=== PATIENT | female | born 2005 | race Two or more races ===

== ENCOUNTER 2025-04-15 17:17 | Observation (INO) | payer MEDICAID, SELFPAY ==
[2025-04-15 17:38] VITALS: BP 118/73; PULSE 94; RESP 18; RESP 98; TEMP 36.9
[2025-04-15 17:39] LABS: Collection Type, Urine Clean Catch
[2025-04-15] MEDS: RINGERS LACTATED 1000 ML 1,000 ML 999 ML IV (17:42)
[2025-04-15 17:45] VITALS: BMI 29.9
[2025-04-15 17:46] LABS: Bacteria,Urine Rare; Bilirubin,Urine Negative (Negative); Blood,Urine Negative (Negative); Clarity,Urine Turbid (Clear/Hazy); Color,Urine Lt-Yellow (Lt Yel-Yel); Glucose, Urine Trace (Negative); Ketones,Urine Negative (Negative); Leukocyte Esterase,Urine Negative (Negative); Nitrite,Urine Negative (Negative); PH,Urine 6.5 (5.0-7.0); Protein,Urine Negative (Neg - Trace); RBC,Urine 1 /hpf (0-3); Specific Gravity,Urine 1.007 (1.001-1.035); Squamous Epithelial Cell,Urine 13 /hpf (0-5); Urobilinogen,Urine Negative mg/dL (0.0-1.0); WBC,Urine 2 /hpf (0-5)
[2025-04-15 19:46] VITALS: BP 110/61; PULSE 70
[2025-04-15 19:48] VITALS: BP 110/61; PULSE 70; RESP 18; TEMP 36.8
== END 2025-04-15 21:20 | disposition home or self-care (01) ==
PROVIDERS: Admitting Provider Student in an Organized Health Care Education/Training Program; Visit Provider Student in an Organized Health Care Education/Training Program
DX: O26.893 Other specified pregnancy related conditions, third trimester (principal); Z3A.35 35 weeks gestation of pregnancy; R10.2 Pelvic and perineal pain
CPT/HCPCS: 59025; 59899; 81001; J7120

== ENCOUNTER 2025-04-16 10:13 | Outpatient (CLI) | payer MEDICAID, SELFPAY ==
[2025-04-16] VITALS (8 sets, daily range): BP systolic 120; BP diastolic 70; PULSE 70–100; RESP 20–99; TEMP 36.8; O2SAT 96–99; BMI 30.4
[2025-04-16] MEDS: BETAMET ACET/BETAMET NA PH (Celestone) 6 MG/ML VIAL 12 MG IM (11:17)
== END 2025-04-16 11:25 | disposition home or self-care (01) ==
LOC: S4S1 10:14 → S4SX 10:15
PROVIDERS: Referring Provider Specialist; Visit Provider Specialist
DX: Z34.03 Encounter for supervision of normal first pregnancy, third trimester (principal); Z3A.35 35 weeks gestation of pregnancy
CPT/HCPCS: 59025; 96372; J0702

== ENCOUNTER 2025-04-17 10:34 | Outpatient (CLI) | payer MEDICAID, SELFPAY ==
[2025-04-17 10:39] VITALS: BMI 29.5
[2025-04-17 10:40] VITALS: BP 115/68; PULSE 112; PULSE 94; RESP 20; TEMP 36.1; O2SAT 97
[2025-04-17 10:45] VITALS: PULSE 79; O2SAT 98
[2025-04-17 10:50] VITALS: PULSE 120; O2SAT 97
[2025-04-17 10:55] VITALS: PULSE 105; O2SAT 99
[2025-04-17 11:00] VITALS: PULSE 89; O2SAT 99
[2025-04-17] MEDS: BETAMET ACET/BETAMET NA PH (Celestone) 6 MG/ML VIAL 12 MG IM (11:02)
[2025-04-17 11:05] VITALS: PULSE 95; O2SAT 99
== END 2025-04-17 11:13 | disposition home or self-care (01) ==
LOC: S4S1 10:35 → S4SX 10:37
PROVIDERS: PCP Registered Nurse; Referring Provider Specialist; Visit Provider Specialist
DX: Z34.03 Encounter for supervision of normal first pregnancy, third trimester (principal); Z3A.35 35 weeks gestation of pregnancy
CPT/HCPCS: 59025; 96372; J0702

== ENCOUNTER 2025-04-18 15:11 | Observation (INO) | payer MEDICAID, SELFPAY ==
[2025-04-18 15:11] VITALS: BP 118/63; PULSE 77; RESP 18; RESP 99; TEMP 36.8
[2025-04-18 15:16] VITALS: BP 118/63; PULSE 77
[2025-04-18 15:35] VITALS: BMI 29.8
[2025-04-18 18:19] VITALS: BP 116/67; PULSE 76; RESP 18
== END 2025-04-18 18:20 | disposition home or self-care (01) ==
PROVIDERS: Admitting Provider Specialist; Visit Provider Specialist
DX: O26.893 Other specified pregnancy related conditions, third trimester (principal); Z3A.36 36 weeks gestation of pregnancy; R10.2 Pelvic and perineal pain
CPT/HCPCS: 59899

== ENCOUNTER 2025-04-25 22:09 | Observation (INO) | payer MEDICAID, SELFPAY ==
[2025-04-25 22:13] VITALS: BP 105/73; PULSE 108; RESP 16; RESP 98; TEMP 36.8
[2025-04-25 22:24] VITALS: PULSE 108; RESP 16; TEMP 36.8; O2SAT 98
== END 2025-04-25 23:46 | disposition home or self-care (01) ==
PROVIDERS: Admitting Provider Obstetrics & Gynecology; Visit Provider Obstetrics & Gynecology
DX: O47.1 False labor at or after 37 completed weeks of gestation (principal); Z3A.37 37 weeks gestation of pregnancy
CPT/HCPCS: 59025; 59899

== ENCOUNTER 2025-04-26 18:12 | Observation (INO) | payer MEDICAID, SELFPAY ==
[2025-04-26] VITALS (23 sets, daily range): BP systolic 123; BP diastolic 69; PULSE 85–118; RESP 20–97; TEMP 36.8; O2SAT 96–100
[2025-04-26] MEDS: ONDANSETRON ODT 4 MG TABRAP PO (18:35)
[2025-04-26] MEDS: ACETAMINOPHEN 500 MG TABLET 1000 MG PO (18:35)
[2025-04-26 18:50] LABS: Collection Type, Urine Clean Catch
[2025-04-26 19:01] LABS: Bilirubin,Urine Negative (Negative); Blood,Urine Negative (Negative); Clarity,Urine Clear (Clear/Hazy); Color,Urine Lt-Yellow (Lt Yel-Yel); Glucose, Urine Negative (Negative); Ketones,Urine 3+ (Negative); Leukocyte Esterase,Urine Negative (Negative); Nitrite,Urine Negative (Negative); PH,Urine 6.5 (5.0-7.0); Protein,Urine Negative (Neg - Trace); RBC,Urine 2 /hpf (0-3); Specific Gravity,Urine 1.011 (1.001-1.035); Squamous Epithelial Cell,Urine 9 /hpf (0-5); Urobilinogen,Urine Negative mg/dL (0.0-1.0); WBC,Urine 1 /hpf (0-5)
[2025-04-26 19:10] LABS: COVID-19 Antigen (In-House) Negative (Negative); Influenza A Ag Negative; Influenza B Ag Negative
[2025-04-26 19:20] LABS: Basophils % (Auto) 0 % (0-2.5); Eosinophils % (Auto) 0 % (0-10); Hematocrit 36.5 % (36.0-46.0); Hemoglobin 12.4 g/dL (12.0-16.0); Immature Granulocytes % (Auto) 1 % (0-0); Lymphocytes # (Auto) 1.1 Thou/mm3 (1.0-4.8); Lymphocytes % (Auto) 8 % (10-50); Mean Corpuscular Hemoglobin 27.1 pg (25.0-35.0); Mean Corpuscular Volume 80 fL (80-100); Monocytes # (Auto) 0.6 Thou/mm3 (0.0-0.8); Monocytes % (Auto) 4 % (0-12); Neutrophils # (Auto) 11.5 Thou/mm3 (1.8-7.7); Neutrophils % (Auto) 87 % (37-80); Nucleated Red Blood Cell % 0 /100 WBC (0); Platelet Count 236 Thou/mm3 (140-440); RDW Standard Deviation 40.4 fL (36.4-46.3); Red Blood Count 4.57 Miln/mm3 (4.00-5.20); White Blood Count 13.3 Thou/mm3 (3.6-11.0)
[2025-04-26 19:40] LABS: Alanine Aminotransferase 9 U/L (10-49); Albumin, Serum 3.5 gm/dL (3.5-5.0); Albumin/Globulin Ratio 1.6 (1.2-2.2); Alkaline Phosphatase 214 U/L (46-116); Anion Gap 9 (7-16); Aspartate Amino Transferase 17 U/L (0-34); BUN/Creatinine Ratio 10 Ratio (12-20); Bilirubin,Total 1.1 mg/dL (0.3-1.2); Blood Urea Nitrogen < 5 mg/dL (9-23); Calcium 8.6 mg/dL (8.3-10.6); Carbon Dioxide 21.7 mMol/L (20.0-31.0); Chloride 104 mMol/L (98-107); Creatinine (Component) 0.5 mg/dL (0.6-1.3); Estimated Creatinine Clearance 155.2 mL/min (>60); Globulin 2.2 gm/dL (2.3-3.5); Glucose 77 mg/dL (74-106); Osmolality,Calculated 266 (275-295); Potassium 3.8 mMol/L (3.4-5.1); Sodium 135 mMol/L (136-145); Total Protein 5.7 gm/dL (5.7-8.2); eGFR > 60 See Note
== END 2025-04-26 20:10 | disposition home or self-care (01) ==
PROVIDERS: Admitting Provider Obstetrics & Gynecology; Visit Provider Obstetrics & Gynecology
DX: O21.2 Late vomiting of pregnancy (principal); O26.893 Other specified pregnancy related conditions, third trimester; R10.9 Unspecified abdominal pain; Z3A.37 37 weeks gestation of pregnancy
CPT/HCPCS: 36415; 59899; 80053; 81001; 85025; 87086; 87502; 87811; G0378; Q0162; A9270

== ENCOUNTER 2025-05-03 21:41 | Observation (INO) | payer MEDICAID, SELFPAY ==
[2025-05-03 21:45] VITALS: BP 110/59; PULSE 82; RESP 18; RESP 99; TEMP 36.7; BMI 30.8
[2025-05-03 21:49] VITALS: PULSE 78; O2SAT 100
[2025-05-03 21:50] VITALS: BP 110/59; PULSE 82
[2025-05-03 22:18] LABS: ROM Kit Lot # 58102387; ROM Swab Mixed By: MARTB3; Swb Mxed in Solvent 1 min? Yes
[2025-05-03 22:19] LABS: Rupture of Fetal Membranes Negative (Negative)
== END 2025-05-03 22:40 | disposition home or self-care (01) ==
PROVIDERS: Admitting Provider Specialist; Visit Provider Specialist
DX: O47.1 False labor at or after 37 completed weeks of gestation (principal); Z3A.38 38 weeks gestation of pregnancy
CPT/HCPCS: 59025; 59899; 84112

== ENCOUNTER 2025-05-06 09:05 | Observation (INO) | payer MEDICAID, SELFPAY ==
[2025-05-06 09:16] VITALS: BP 116/57; PULSE 70; RESP 20; RESP 98; TEMP 36.6; O2SAT 98; BMI 30.4
[2025-05-06 09:52] VITALS: PULSE 71; O2SAT 98
[2025-05-06 09:57] VITALS: PULSE 76; O2SAT 97
[2025-05-06 10:02] VITALS: PULSE 76; O2SAT 97
[2025-05-06 10:03] LABS: ROM Kit Lot # 58102387; ROM Swab Mixed By: LOPEC2; Rupture of Fetal Membranes Negative (Negative); Swb Mxed in Solvent 1 min? Yes
== END 2025-05-06 10:20 | disposition home or self-care (01) ==
PROVIDERS: Admitting Provider Obstetrics & Gynecology; Visit Provider Obstetrics & Gynecology
DX: Z34.03 Encounter for supervision of normal first pregnancy, third trimester (principal); Z3A.38 38 weeks gestation of pregnancy
CPT/HCPCS: 59025; 59899; 84112

== ENCOUNTER 2025-05-13 06:30 | Inpatient (IN) | payer MEDICAID, SELFPAY ==
[2025-05-13] VITALS (163 sets, daily range): BP systolic 98–123; BP diastolic 53–83; PULSE 58–109; RESP 16–99; TEMP 36.4–37; O2SAT 84–100; BMI 31.4
--- NOTE | 2025-05-13 07:15 | XR_ITS ---
Examination: age limited TECHNIQUE: Limited transabdominal sonographic images pelvis Date and time: May 13, 2025, 0737 hours INDICATIONS: Labor evaluation FINDINGS: Viable intrauterine gestation cephalic presentation. spine maternal right. Cardiac motion 133 BPM IMPRESSION: Viable intrauterine gestation cephalic presentation
[2025-05-13 08:37] LABS: Basophils # (Auto) 0.0 Thou/mm3 (0.0-0.2); Basophils % (Auto) 0 % (0-2.5); Eosinophils # (Auto) 0.0 Thou/mm3 (0.0-0.5); Eosinophils % (Auto) 0 % (0-10); Hematocrit 37.3 % (36.0-46.0); Hemoglobin 12.5 g/dL (12.0-16.0); Immature Granulocytes Auto 0.05 Thou/mm3 (0.00-0.00); Lymphocytes # (Auto) 2.7 Thou/mm3 (1.0-4.8); Lymphocytes % (Auto) 25 % (10-50); Mean Corpuscular HGB Conc 33.5 g/dl (31.0-37.0); Mean Corpuscular Hemoglobin 26.5 pg (25.0-35.0); Mean Corpuscular Volume 79 fL (80-100); Monocytes # (Auto) 0.8 Thou/mm3 (0.0-0.8); Monocytes % (Auto) 7 % (0-12); Neutrophils # (Auto) 7.3 Thou/mm3 (1.8-7.7); Neutrophils % (Auto) 67 % (37-80); Nucleated Red Blood Cell # 0.00 Thou/mm3 (0.00-0.00); Nucleated Red Blood Cell % 0 /100 WBC (0); Platelet Count 249 Thou/mm3 (140-440); RDW Standard Deviation 40.7 fL (36.4-46.3); Red Blood Count 4.72 Miln/mm3 (4.00-5.20); White Blood Count 10.9 Thou/mm3 (3.6-11.0)
[2025-05-13 08:47] LABS: Syphilis Nonreactive (Nonreactive)
[2025-05-13] MEDS: fentaNYL CIT INJ 50 mCg/ML AMP 2ML 100 MCG IVP ×2 (11:41→14:19)
[2025-05-13] MEDS: RINGERS LACTATED 1000 ML 1,000 ML 100 ML IV ×2 (13:53→20:11)
[2025-05-13] MEDS: OXYTOCIN in NS 30 units 30 UNIT/500 ML BAG IV (17:01)
--- NOTE | 2025-05-13 18:29 | ESHP_ITS ---
Documentation for date of: 05/13/25 OB Labor/Induct. HPI History of Present Illness Chief complaint: labor : 1 Para: 0 Term pregnancies: 0 pregnancies: 0 Living children: 0 History of Abortions: Spontaneous and Elective: 0 History of Vaginal deliveries: 0 History of sections: No History of : No Date of last menstrual period: 08/09/25 SHARON: 05/16/25 Gestational Age (weeks): 39 Gestational Age (days): 4 Gestational age based on last menstrual period: -12 History of present illness: 19-year-old 1 para 0 admitted to labor and delivery with complaints of contractions since 3 in the morning. [facility]. First visit 8 weeks. Last period August 09, 2024. Skip due date May 16, 2025. Patient had 7-week ultrasound in October that confirmed dates and then she also had a 10-week ultrasound October to confirm dates. Denies social habits. Denies surgery. Eyes chronic illness. Patient is EBV positive, antibody screen negative, RPR nonreactive, rubella immune, hepatitis B negative, hep C negative, HIV negative, GC and Chlamydia were negative. Drug screen negative. Normal 1 hour. NIPT and carrier screens were all negative. GBS is negative History of Present Dating criteria: LMP confirmed by 2nd trimester US Adequate Care: Yes Ultrasounds: normal 1st trimester US and normal mid trimester US Obstetrical complications: none Medical complications: none Labs Labs: Positive: Rubella Titre, Negative: RPR, Hepatitis B, HIV, Chlamydia, Gonorrhea and Group Beta Strep and Unknown: Herpes Type 1, Herpes Type 2 and Covid-19 Review of Systems Review of Systems Systems Reviewed: All systems reviewed, normal except as documented Past Medical History Surgical History SURGICAL: Negative Section Meds Home Medications and Allergies Home Medications ?Medication ?Instructions ?Recorded ?Confirmed ?Type vits no.179-ferrous 1 tab PO QDAY 04/16/25 History fumarate 28 mg-folic acid 800 mcg tablet Allergies Allergy/AdvReac Type Severity Reaction Status Date / Time No Known Allergies Allergy Verified 05/13/25 07:08 OB Exam Physical Exam Vital signs: Temp Pulse Resp BP Pulse Ox O2 Del Method 97.6 F 78 18 113/72 98 Room Air 05/13/25 06:36 05/13/25 18:03 05/13/25 06:36 05/13/25 18:03 05/13/25 18:26 05/13/25 06:36 Narrative: Alert and oriented. Normal heart rate and rhythm. Lungs clear no wheezes. Gravid abdomen. Gynecoid pelvis. Estimated weight 7 pounds 2 ounces. Vaginal exam on admission was 80%, 4, -3. Vertex. Bag water intact. heart rate category 1 with accelerations and moderate variability and regular contractions Routine Cardiovascular Exam Cardiovascular: Present RRR Routine Abdominal Exam Abdominal: Present soft Detailed Labor and Delivery Exam Dilation (cm): 4 Effacement (%): 80 Cervix position: mid station: -3 Consistency: soft Presentation: Vertex Cervical ripeness score: 8 Membranes: intact Baseline heart rate: 145 monitor accelerations: 15x15 monitor decelerations: None terminal clerk variability: Moderate (11-25) Contraction frequency (min): 2-4 Contraction duration (sec): 40 Tachysystole: No Contraction intensity: Moderate OB Results Labs 05/13/25 07:05 Labs: Short CBC 05/13/25 Range/Units 07:05 WBC 10.9 (3.6-11.0) Thou/mm3 Hgb 12.5 (12.0-16.0) g/dL Hct 37.3 (36.0-46.0) % Plt Count 249 (140-440) Thou/mm3 OB Assessment & Plan Assessment and Plan (1) Normal labor and delivery: Status: Acute Additional Plan Induction method: none Plan: augmentation, anticipate NVD and consult MD adames
[2025-05-14] VITALS (83 sets, daily range): BP systolic 99–147; BP diastolic 55–90; PULSE 61–156; RESP 16–18; TEMP 36.6–38.3; O2SAT 69–100
[2025-05-14] MEDS: RINGERS LACTATED 1000 ML 1,000 ML 100 ML IV (00:24)
[2025-05-14] MEDS: Ampicillin Inj 2,000 MG in SODIUM CHLORIDE 0.9% (POP) 100 ML 200 MG IV (00:25)
[2025-05-14] MEDS: ACETAMINOPHEN IVPB 1,000 MG/100 ML VIAL 250 MG IV (00:25)
[2025-05-14] MEDS: GENTAMICIN/NS 80 MG IVPB 80 MG/50 ML PIGGYBACK 50 MG IV (02:32)
--- NOTE | 2025-05-14 02:50 | ESPR_ITS ---
Documentation for date of: 05/14/25 OB Labor Progress Note Pain Control Pain control: tolerating well Pelvic Exam Dilation (cm): 10 Effacement (%): 100 station: -1 Amniotic membrane status: Ruptured Contractions Monitor mode: External Contraction frequency: 2-3 Contraction duration: 40 Contraction phase: Resting Contraction intensity: Strong Status status: Category ll Assessment and Plan Comments: elevated maternal temp, 100.2, consult with OB. labor down 1 hr. change ampicil llin 1 gm to uNASYN, Pharmacy to does. Tylenol 1 gm IV q 6, add Gentamycin 80 q 12hr. after meds infused, start active pushing CNM Management MD Consulted (describe details below): Yes
[2025-05-14] MEDS: AMPICILLIN/SULBAC INJ 1.5 GM in SODIUM CHLORIDE 0.9% (Popper) 50 ML IV (03:49)
[2025-05-14] MEDS: MINERAL OIL 30 ML UDC TOP (03:54)
[2025-05-14] MEDS: OXYTOCIN in NS 20 units 20 UNIT/1,000 ML BAG 125 UNIT IV (04:15)
[2025-05-14] MEDS: LIDOCAINE HCL 1% 20 ML VIAL INFL (04:19)
[2025-05-14] MEDS: TRANEXAMIC ACID 1,000 MG IVPB 1,000 MG/100 ML BAG 200 MG IV (04:20)
[2025-05-14] MEDS: BENZO/LANO/ALOE (Dermoplast) 60 GM CAN 1 SPRAY TOP (04:50)
[2025-05-14] MEDS: IBUPROFEN TAB 400 MG TABLET 800 MG PO ×2 (04:51→16:41)
[2025-05-14 07:40] LABS: Basophils # (Auto) 0.0 Thou/mm3 (0.0-0.2); Basophils % (Auto) 0 % (0-2.5); Eosinophils # (Auto) 0.0 Thou/mm3 (0.0-0.5); Eosinophils % (Auto) 0 % (0-10); Hematocrit 35.6 % (36.0-46.0); Hemoglobin 12.1 g/dL (12.0-16.0); Immature Granulocytes Auto 0.15 Thou/mm3 (0.00-0.00); Lymphocytes # (Auto) 0.9 Thou/mm3 (1.0-4.8); Lymphocytes % (Auto) 4 % (10-50); Mean Corpuscular HGB Conc 34.0 g/dl (31.0-37.0); Mean Corpuscular Hemoglobin 27.6 pg (25.0-35.0); Mean Corpuscular Volume 81 fL (80-100); Monocytes # (Auto) 1.4 Thou/mm3 (0.0-0.8); Monocytes % (Auto) 6 % (0-12); Neutrophils # (Auto) 20.1 Thou/mm3 (1.8-7.7); Neutrophils % (Auto) 89 % (37-80); Nucleated Red Blood Cell # 0.00 Thou/mm3 (0.00-0.00); Nucleated Red Blood Cell % 0 /100 WBC (0); Platelet Count 210 Thou/mm3 (140-440); RDW Standard Deviation 42.0 fL (36.4-46.3); Red Blood Count 4.38 Miln/mm3 (4.00-5.20); White Blood Count 22.6 Thou/mm3 (3.6-11.0)
[2025-05-14] MEDS: ACETAMINOPHEN 325 MG TABLET 650 MG PO ×2 (07:44→16:47)
[2025-05-14] MEDS: DOCUSATE SOD 100 MG CAPSULE PO (07:45)
[2025-05-14] MEDS: PIPER/TAZO 3.375 GM PREMIX 3.375 GM/50 ML BAG IV ×2 (12:27→21:58)
[2025-05-15] VITALS (7 sets, daily range): BP systolic 93–113; BP diastolic 56–78; PULSE 64–77; RESP 16–18; TEMP 36.5–37.1; O2SAT 97–99
[2025-05-15] MEDS: ACETAMINOPHEN 325 MG TABLET 650 MG PO (00:11)
[2025-05-15] MEDS: IBUPROFEN TAB 400 MG TABLET 800 MG PO ×2 (05:54→15:28)
[2025-05-15] MEDS: PIPER/TAZO 3.375 GM PREMIX 3.375 GM/50 ML BAG IV ×3 (05:54→23:00)
--- NOTE | 2025-05-15 08:33 | PD.LDPPPRG ---
Subjective Subjective Interval history: No complaints of pain. No dizziness. Bonding and breast-feeding Exam Vital Signs Temp Pulse Resp BP Pulse Ox O2 Del Method 97.8 F 77 18 105/70 99 Room Air 05/15/25 03:53 05/15/25 03:53 05/15/25 03:53 05/15/25 03:53 05/15/25 03:53 05/15/25 03:53 Narrative Exam Vital signs are stable. Afebrile for the last 24 hours. Fundus firm below the umbilicus. Perineum is intact no swelling or edema. Small lochia. Breasts are soft. Abdomen nontender. Negative Homans' sign. 2+ DTRs Objective Labs 05/14/25 06:45 Assessment & Plan Problem List (1) Normal labor and delivery: Status: Acute (2) Encounter for care and examination after delivery: Status: Acute Assessment Comment Assessment comment: afebrile Plan Comment Plan Comment: Continue antibiotics for the next 24 hours. Evaluate temperature per unit protocol. Encourage ambulation and breast-feeding. Increase fluids. Ibuprofen or Tylenol for pain. And discharge home tomorrow morning with baby Time Spent With Patient Time: Total time spent is greater than 50% in coordination of care (as documented) at patient's floor/unit and/or counseling patient:
[2025-05-15] MEDS: DOCUSATE SOD 100 MG CAPSULE PO (09:36)
--- NOTE | 2025-05-16 03:05 | PD.LDPPPRG ---
Subjective Subjective Interval history: Doing well. Denies dizziness or pain. Breast-feeding with help. No complaints at this time Exam Vital Signs Temp Pulse Resp BP Pulse Ox O2 Del Method 98.4 F 64 18 106/72 99 Room Air 05/15/25 23:00 05/15/25 23:00 05/15/25 23:00 05/15/25 23:00 05/15/25 23:00 05/15/25 23:00 Narrative Exam Vital signs are stable afebrile. Breasts are soft. Fundus firm below the umbilicus. Perineum intact no swelling. Small lochia. Uterus is well involuted. Perineum is intact minimal swelling. 2+ DTRs. +1 edema. Negative Homans' sign. No signs of phlebitis Objective Labs 05/14/25 06:45 Assessment & Plan Problem List (1) Normal labor and delivery: Status: Acute (2) Encounter for care and examination after delivery: Status: Acute Assessment Comment Assessment comment: 48 hr pp Plan Comment Plan Comment: Discontinue IVs and antibiotics. Discharge home today with baby. I discussed signs and symptoms of infection with patient. Discussed ER precautions and parameters and danger signs symptoms. I discussed comfort measures for vaginal laceration and sitz bath's. Increase fluids. Continue vitamins. Tylenol ibuprofen for pain. Return in 3 weeks with provider for visit Time Spent With Patient Time: Total time spent is greater than 50% in coordination of care (as documented) at patient's floor/unit and/or counseling patient:
--- NOTE | 2025-05-16 03:08 | PD.LDDS ---
DS: Providers Provider Date of admission: 05/13/25 07:00 Primary care physician: Physician No Primary/Family Admitting Provider: Conor Null MD Attending Provider on Admission: Rei Barrios MD Consults: 05/14/25 05:28 Referral Routine Comment: Attending Provider on DC: Yanci Mchugh CNM Discharging Provider: Yanci Mchugh CNM DS: Diagnosis Problem List Completed Was Problem List Reviewed/Reconciled?: Yes Summary/Hosp Course Brief History: 19-year-old 1 para 0 admitted to labor and delivery with complaints of contractions since 3 in the morning. Patient is involved in [facility] for care. First visit 8 weeks. Last period August 09, 2024. Skip due date May 16, 2025. Patient had 7-week ultrasound in October that confirmed dates and then she also had a 10-week ultrasound October to confirm dates. Denies social habits. Denies surgery. Eyes chronic illness. Patient is EBV positive, antibody screen negative, RPR nonreactive, rubella immune, hepatitis B negative, hep C negative, HIV negative, GC and Chlamydia were negative. Drug screen negative. Normal 1 hour. NIPT and carrier screens were all negative. GBS is negative Peripartum Data Delivery Method: Operative Vaginal Delivery Episiotomy Description: None Laceration Description: yes (vaginal tear) Time Spent with Patient Time attestation: Total time spent providing and/or coordinating discharge services: Exam Vital Signs Temp Pulse Resp BP Pulse Ox O2 Del Method 98.4 F 64 18 106/72 99 Room Air 05/15/25 23:00 05/15/25 23:00 05/15/25 23:00 05/15/25 23:00 05/15/25 23:00 05/15/25 23:00 Discharge Plan Plan Patient Disposition: HOME (Self Care) Patient condition on transfer: Stable Prescriptions/Referrals Prescriptions/Med Rec: No Action vit no.[id number] 28 mg iron- 800 mcg tablet 1 tab PO QDAY Patient Comments: TAKE 1 TABLET BY MOUTH ONCE A DAY FOR 30 DAYS Referrals: No Primary/Family,Physician [Primary Care Provider] - Patient/Caregiver Discharge Instructions Discharge Activity: resume usual activities Print Language: Indonesian Activity Restrictions/Additional Instructions: Discharge home with baby. Continue vitamins and iron. Tylenol ibuprofen for pain. Increase fluids and increase roughage. Discussed small frequent feeds with baby and latching. Discussed comfort measures for laceration and sitz bath's twice daily. Discussed ER precautions and signs symptoms of infection. Reviewed danger signs with patient. Schedule appointment with provider in 3 weeks for visit Stand Alone Forms: Talisha Award Info., Patient Portal Info Letter Discharge Order Discharge Orders: Discharge (Routine); Ordered 05/16/25 Ordered By: Yanci Mchugh Planned Discharge Date 05/16/25
[2025-05-16 04:00] VITALS: BP 105/67; PULSE 63; RESP 18; TEMP 36.8; O2SAT 98
[2025-05-16] MEDS: IBUPROFEN TAB 400 MG TABLET 800 MG PO (04:17)
[2025-05-16 08:00] VITALS: BP 115/74; PULSE 76; RESP 16; TEMP 36.9; O2SAT 98
[2025-05-16] MEDS: DOCUSATE SOD 100 MG CAPSULE PO (08:34)
== END 2025-05-16 11:30 | disposition home or self-care (01) | DRG 560 ==
LOC: S4SX 05-14 05:50 → S4NX 05-14 06:25
PROVIDERS: Advanced Practice Midwife; Admitting Provider Specialist; Visit Provider Obstetrics & Gynecology
DX: O71.4 Obstetric high vaginal laceration alone (principal); Z37.0 Single live birth; Z3A.39 39 weeks gestation of pregnancy
CPT/HCPCS: 36415; 59025; 59409; 76815; 85025; 86780; 86850; 86900; 86901; 94762; J0131; J0290; J0295; J1580; J2543; J2590; J2795; J3010; J3490; J7050; J7120; S0191; A9270